=== PATIENT | male | born 1970 | race African-American/Black ===

== ENCOUNTER 2017-06-19 14:07 | Emergency (ER) | payer OTHER, SELFPAY ==
[2017-06-19 14:08] VITALS: BP 142/74; PULSE 82; RESP 16; TEMP 36.5; O2SAT 98; BMI 31.6
--- NOTE | 2017-06-19 14:31 | RAD_ITS ---
STUDY: X-RAY CHEST REASON FOR EXAM: Male, 47 years old. Cough x1 month TECHNIQUE: PA and lateral views of the chest. COMPARISON: None. FINDINGS: The lungs are clear and expanded. There is no demonstrated pleural abnormality. Normal size heart. Normal mediastinum and reina. Normal visualized pulmonary arteries. Normal visualized aortic arch and descending thoracic aorta. Normal visualized thoracic spine. Normal visualized ribs, clavicles, and shoulders. There is no demonstrated abnormality of the visualized soft tissue structures of the upper abdomen. RAD/Chest PA and Lateral IMPRESSION: Normal x-ray examination of the chest. Electronically Signed: Favian Snyder DO at 15:20 EST Tel , Service support ,
--- NOTE | 2017-06-19 15:10 | ED.DCSUM_ITS ---
- ER Visit Summary Date of Service: 06/19/17 Chief Complaint: Active cough ?1 month. History of Present Illness: The patient is a 47 M is a smoker 1 pack per day presents with a productive cough of yellow-green sputum for 1 month. He denies fever, chills night sweats. He denies rhinorrhea, postnasal drainage, earache or sore throat. He denies history of PE or DVT and has no risk factors. He denies any leg pain, swelling discoloration. Physical Examination: Vital signs remarkable blood pressure 142/74. He is PERC negative. Head is atraumatic normocephalic. Pupils are equal round reactive. Extraocular muscles are intact. TMs are pearly white with landmarks noted. Nares patent with no drainage. Posterior pharynx without erythema or exudate. Uvula is midline. There is no dysphonia or dysphasia. Trachea is midline. There is no stridor with auscultation of the neck. Heart is regular without murmur, gallop or rub. S1 and S2 are normal. Lungs are clear to auscultation with good movement of air bilaterally. There is no asymmetry, swelling, discoloration, leg vein distention, palpable cords or tenderness along the distribution of the deep venous system. Test Results: View chest x-ray was interpreted by me as negative Emergency Department Course and Treatment: Chest x-ray is obtained since patient had a productive cough for 1 month. Treatment Plan: Prescription for doxycycline Disposition: Discharged to home with appropriate home-going instructions Impression: Purulent bronchitis This note was generated with [employer] dictation software. It may contain incorrect words, spelling, and punctuation that were not noted in review of the chart prior to signing ED Disposition - Plan for ED Patient: Disposition: Home or Assisted Living Chief Complaint: Cough Instructions: ED Upper Resp Infec Abx Tx Prescriptions: Doxycycline [Vibramycin] 100 mg PO BID #14 cap Referrals: NOT,DEFINED [Primary Care Provider] - Fast,Heather, DO [NON-STAFF] - 3-5 Days if not improving
[2017-06-19 15:21] VITALS: RESP 18
[2017-06-19] MEDS: Doxycycline 100 MG CAPSULE PO (15:21)
== END 2017-06-19 15:21 | disposition home or self-care (01) ==
PROVIDERS: Emergency Provider Emergency Medicine
DX: J41.1 Mucopurulent chronic bronchitis (principal); F17.200 Nicotine dependence, unspecified, uncomplicated
CPT/HCPCS: 71046; 99283

== ENCOUNTER 2017-08-13 06:54 | Emergency (ER) | payer OTHER, SELFPAY ==
[2017-08-13 06:56] VITALS: BP 126/89; PULSE 79; RESP 16; TEMP 36.4; O2SAT 98; BMI 32.3
--- NOTE | 2017-08-13 07:06 | ED.DCSUM_ITS ---
- ER Visit Summary Date of Service: 08/13/17 Chief Complaint: Penile pain and discharge History of Present Illness: The patient is a 47 M with a 2 day history of pain in his penis, thick penile discharge, and mild burning with urination. Patient does report recent intercourse with a new partner and the condom broke. He has had gonorrhea in the past with similar type symptoms. He denies any obvious hematuria. He did had some mild left flank pain. Physical Examination: Vital signs are unremarkable. Patient sitting at bedside chair no acute distress. Head neck examination is unremarkable. Heart is regular rate and rhythm. Lung sounds are clear. Abdomen is soft and nontender to palpation. examination reveals minimal tenderness to the left testicle. There is no edema or erythema. No lesions are noted. He has no discharge. Test Results: [] Emergency Department Course and Treatment: She did give a urine sample. This will be sent for urinalysis and GC chlamydia testing. Patient be treated with Rocephin and Zithromax. Treatment Plan: [] Disposition: Discharge Impression: Penile discharge This note was generated with [employer] dictation software. It may contain incorrect words, spelling, and punctuation that were not noted in review of the chart prior to signing ED Disposition - Plan for ED Patient: Chief Complaint: Male Pain/Injury Referrals: NOT,DEFINED [NON-STAFF] -
--- NOTE | 2017-08-13 08:25 | ED.DEP ---
ED Disposition - Plan for ED Patient: Disposition: Home or Assisted Living Chief Complaint: Male Pain/Injury Instructions: ED STD Male Treated Referrals: Nuris Hi MD [COURTESY STAFF PHYSICIAN] - As Needed
[2017-08-13 08:31] LABS: Bacteria 0 SEEN /hpf (None Seen); Mucous, Urine 0 SEEN /hpf (<or=2+); Red Blood Cells-Urine 0 SEEN /hpf (0-5); White Blood Cells 0 SEEN /hpf (0-5)
[2017-08-13] MEDS: Azithromycin 250 MG Tablet 1000 MG PO (08:32)
[2017-08-13 08:38] LABS: Color, Urine Yellow (Yellow); Glucose, Dipstick Normal (Normal); Ketone-Dipstick Negative (Negative); Leukocyte Esterase-Dipstick Negative /ul (Negative); Nitrite-Dipstick Negative (Negative); Occult Blood-Urine Negative /ul (Negative); Protein-Dipstick Negative (Negative); Specific Gravity, Urine 1.015 (1.002-1.030); Urine Bilirubin Dipstick Negative (Negative); Urine Clarity Clear (Clear); Urine Urobilinogen Normal (Normal)
[2017-08-13 08:44] LABS: Squamous Epithelial Cells - UA 0-5 SEEN /hpf (0-5)
[2017-08-13] MEDS: Ceftriaxone 500 MG Vial 250 MG IM (09:00)
[2017-08-13 09:06] VITALS: BP 145/96; PULSE 60; RESP 18; O2SAT 100
[2017-08-13 09:11] VITALS: BP 128/87; PULSE 63; RESP 15; O2SAT 100
[2017-08-13 10:29] LABS: Chlamydia Trachomatis by PCR Negative (Negative); Neisserai gonorrhoeae by PCR Negative (Negative)
[2017-08-13 10:30] LABS: Probe Check PASS; Sample Adequacy Control PASS; Specimen Processing Control PASS
== END 2017-08-13 09:12 | disposition home or self-care (01) ==
PROVIDERS: Emergency Provider Emergency Medicine
DX: R36.9 Urethral discharge, unspecified (principal); N48.89 Other specified disorders of penis; Z72.0 Tobacco use
CPT/HCPCS: 81001; 87491; 87591; 96372; 99283

== ENCOUNTER 2017-08-28 14:17 | Emergency (ER) | payer OTHER, SELFPAY ==
[2017-08-28 14:21] VITALS: BP 128/77; PULSE 83; RESP 18; TEMP 36.2; O2SAT 97; BMI 30.7
--- NOTE | 2017-08-28 15:08 | ED.VISSUMM ---
- ER Visit Summary Date of Service: 08/28/17 Chief Complaint: Dysuria History of Present Illness: The patient is a 47 M continuing burning at the tip of the penis during urination. It has been going on for 2 weeks. Seen 2 weeks ago had penile discharge, treated for urethritis with Rocephin and Zithromax. History of similar with gonorrhea in the past. States discharge is improved however still has burning. No intercourse since being treated. No fevers. No abdominal pain. has been using Azo. No other complaints. Physical Examination: General: Alert and oriented ?3, no acute distress HEENT: Normocephalic, atraumatic. Moist mucosa membranes Neck: supple, nontender. Cardiovascular: Regular rate and rhythm, no murmurs Respiratory: Normal breath sounds, symmetric, no distress Abdomen: Soft, nontender, nondistended : No penile or urethral ulcerations. No discharge. No testicular tenderness. Extremities: Nontender, no edema, pulses intact ?4 Neuro: no focal neurological deficits. Test Results: UA: Positive for nitrites. Urine culture sent. GC chlamydia pending. Emergency Department Course and Treatment: Patient nontoxic. History states discharge improving with treatment. His urine GC chlamydia reviewed was negative from 2 weeks ago. Discussed with patient plans on time a day if he urinated this could be a false positive reading. However discharge improving. I discussed can resend urethral swab for testing for which he agrees. UA checked noted nitrites. He did not have intercourse since being treatment. Less likely recurrent symptoms. Discussed with patient we will treat for his UTI being symptomatic. He is given follow-up as an outpatient. Pending his GC chlamydia results for required or needed retreatment. Treatment Plan: [] Disposition: Discharge Impression: Urinary tract infection This note was generated with [employer] dictation software. It may contain incorrect words, spelling, and punctuation that were not noted in review of the chart prior to signing ED Disposition - Plan for ED Patient: Disposition: Home or Assisted Living Chief Complaint: Complaint Diagnosis: Urinary tract infection Instructions: Urinary Tract Infections in Men Prescriptions: Cephalexin [Keflex] 500 mg PO BID #20 capsule Referrals: Care Physician,No Primary [Primary Care Provider] - Sher Aranda MD [STAFF PHYSICIAN] - 5-7 Days
[2017-08-28 15:26] LABS: White Blood Cells 0 SEEN /hpf (0-5)
[2017-08-28 15:35] LABS: Color, Urine Yellow (Yellow); Glucose, Dipstick Normal (Normal); Ketone-Dipstick Negative (Negative); Leukocyte Esterase-Dipstick Negative /ul (Negative); Nitrite-Dipstick Positive (Negative); Occult Blood-Urine Negative /ul (Negative); Protein-Dipstick 15 mg/dl (Negative); Urine Bilirubin Dipstick Negative (Negative); Urine Clarity Clear (Clear); Urine Urobilinogen 1 mg/dl (Normal)
[2017-08-28 15:42] LABS: Red Blood Cells-Urine 0-5 SEEN /hpf (0-5); Squamous Epithelial Cells - UA 0-5 SEEN /hpf (0-5)
[2017-08-28 15:43] LABS: Bacteria RARE /hpf (None Seen); Mucous, Urine RARE /hpf (<or=2+)
[2017-08-28] MEDS: Cephalexin 250 MG Capsule 500 MG PO (16:00)
--- NOTE | 2017-08-28 16:03 | ED.RN ---
REVIEWED D/C INSTRUCTIONS, FOLLOW UP CARE, PRESCRIPTION, AND S/S THAT WOULD WARRANT A RETURN TO THE ED WITH PT. PT VERBALIZED AN UNDERSTANDING AND DENIES FURTHER QUESTIONS FOR THIS RN. PT SKIN WARM AND DRY, RESP EVEN AND UNLABORED, PT A&O X 3, NO DISTRESS NOTED. PT AMBULATED OUT OF ED, GAIT STEADY.
[2017-08-28 16:04] VITALS: RESP 14
== END 2017-08-28 16:04 | disposition home or self-care (01) ==
PROVIDERS: Emergency Provider Emergency Medicine
DX: N39.0 Urinary tract infection, site not specified (principal)
CPT/HCPCS: 81001; 87086; 87110; 87140; 87491; 87591; 99283

== ENCOUNTER 2017-11-15 13:40 | Emergency (ER) | payer OTHER, SELFPAY ==
[2017-11-15 13:41] VITALS: BP 139/9; PULSE 84; RESP 16; TEMP 36.2; O2SAT 97; BMI 32.3
--- NOTE | 2017-11-15 15:17 | ED.DCSUM_ITS ---
- ER Visit Summary Date of Service: 11/15/17 Chief Complaint: Penile pain History of Present Illness: The patient is a 47 M who states he has pain at the tip of his penis. He has had this for 3 days. He describes as burning. Denies any discharge. No fevers. He states it does not get worse when he urinates. He was seen before and treated and it got better. It looks like it was seen earlier this year and was given Rocephin and azithromycin but did not get better with this so he came back for more oral antibiotics got better. His GC and chlamydia tests were negative at that time. He states he has been sexually active with a single partner that he has had since that last visit. Physical Examination: Vitals are reviewed. Genitourinary exam reveals a normal penis. No tenderness. No discharge. Testicles are nontender. The rest of exam is unremarkable Test Results: UA reveals trace leukocytes of 0-5 white blood cells. GC and Chlamydia are pending Emergency Department Course and Treatment: [] Treatment Plan: Patient will be treated with doxycycline at home. He will follow up with his PCP Disposition: Discharge Impression: UTI This note was generated with [employer] dictation software. It may contain incorrect words, spelling, and punctuation that were not noted in review of the chart prior to signing ED Disposition - Plan for ED Patient: Chief Complaint: Male Pain/Injury Referrals: Care Physician,No Primary [Primary Care Provider] -
[2017-11-15 15:50] LABS: Bacteria 0 SEEN /hpf (None Seen); Mucous, Urine 0 SEEN /hpf (<or=2+); Red Blood Cells-Urine 0 SEEN /hpf (0-5)
[2017-11-15 16:04] LABS: Color, Urine Yellow (Yellow); Glucose, Dipstick Normal (Normal); Ketone-Dipstick Negative (Negative); Leukocyte Esterase-Dipstick 25 /ul (Negative); Nitrite-Dipstick Negative (Negative); Occult Blood-Urine Negative /ul (Negative); Protein-Dipstick 15 mg/dl (Negative); Urine Bilirubin Dipstick Negative (Negative); Urine Clarity Sl. Cloudy (Clear); Urine Urobilinogen Normal (Normal)
[2017-11-15 16:18] LABS: Squamous Epithelial Cells - UA 0-5 SEEN /hpf (0-5); White Blood Cells 0-5 SEEN /hpf (0-5)
--- NOTE | 2017-11-15 16:25 | ED.DEP ---
ED Disposition - Plan for ED Patient: Disposition: Home or Assisted Living Chief Complaint: Male Pain/Injury Instructions: ED UTI Cystitis Male Prescriptions: Doxycycline Monohydrate 100 mg PO BID #14 cap Referrals: Care Physician,No Primary [Primary Care Provider] -
[2017-11-15 16:33] VITALS: BP 124/66; PULSE 81; RESP 15; O2SAT 98
[2017-11-15 17:25] LABS: Chlamydia Trachomatis by PCR Negative (Negative); Neisserai gonorrhoeae by PCR Negative (Negative); Probe Check PASS; Sample Adequacy Control PASS; Specimen Processing Control PASS
== END 2017-11-15 16:34 | disposition home or self-care (01) ==
PROVIDERS: Emergency Provider Emergency Medicine
DX: N39.0 Urinary tract infection, site not specified (principal); Z72.0 Tobacco use
CPT/HCPCS: 81001; 87491; 87591; 99282

== ENCOUNTER 2017-12-10 14:28 | Emergency (ER) | payer OTHER, SELFPAY ==
[2017-12-10 14:31] VITALS: BP 135/82; PULSE 85; RESP 18; TEMP 36.6; O2SAT 98; BMI 33.7
[2017-12-10 14:48] VITALS: BP 125/80; PULSE 80; RESP 14; O2SAT 99
--- NOTE | 2017-12-10 15:12 | ED.VISSUMM ---
- ER Visit Summary Date of Service: 12/10/17 Chief Complaint: Penile pain History of Present Illness: The patient is a 47 M who was seen in August with the same complaint as well as the beginning of this month. At the beginning of this month he was treated with doxycycline. He states that while being treated he was having sex. Denies any fevers. He states that yesterday he had urination at the end he had a thick clear discharge. Today he took a [id number] Azo. Physical Examination: Afebrile vital signs stable Gen: Well-nourished well-developed Head: Normocephalic atraumatic Eyes: Perrl EOMI ENT: TMs clear no rhinorrhea moist mucous membranes Neck: Supple no lymphadenopathy no JVD nontender CVS: Regular rate rhythm no murmurs normal S1-S2 Respiratory: No distress clear to auscultation bilaterally chest nontender Abdomen: Soft nontender nondistended normal bowel sounds no masses : Circumcised male. There is no obvious drainage on the underwear or of the meatus. No lesions are seen. Back: Nontender Extremity: Nontender no edema Skin: Normal color no rash Neuro: alert orientated ?3 CN II-XII intact normal strength sensation reflexes gait cerebellar Psych: Normal affect normal mood Test Results: Urinalysis is nitrate and leukocyte esterase positive. 0-5 white cells 0-5 red cells 0 epithelial cells. Gonorrhea chlamydia was sent again. Emergency Department Course and Treatment: Patient just had a negative gonorrhea and chlamydia test. He was just on doxycycline. Does not improve his symptoms. I have asked him to refrain from any sexual activity. I have asked him to take Flagyl thinking perhaps there could be a trichomonas infection. I have asked him to follow-up with urology. Impression: 1. Urethritis This note was generated with [employer] dictation software. It may contain incorrect words, spelling, and punctuation that were not noted in review of the chart prior to signing ED Disposition - Plan for ED Patient: Disposition: Home or Assisted Living Chief Complaint: Male Pain/Injury Instructions: Urethritis in Men Prescriptions: Metronidazole [Flagyl] 500 mg PO BID #14 tab Referrals: Melchor Cuellar MD [STAFF PHYSICIAN] - (call to arrange follow up)
[2017-12-10 15:35] LABS: Bacteria 0 SEEN /hpf (None Seen); Mucous, Urine 0 SEEN /hpf (<or=2+); Squamous Epithelial Cells - UA 0 SEEN /hpf (0-5)
[2017-12-10 15:38] LABS: Color, Urine Yellow (Yellow); Glucose, Dipstick Normal (Normal); Ketone-Dipstick 5 mg/dl (Negative); Leukocyte Esterase-Dipstick 25 /ul (Negative); Nitrite-Dipstick Positive (Negative); Occult Blood-Urine Negative /ul (Negative); Protein-Dipstick 15 mg/dl (Negative); Specific Gravity, Urine 1.025 (1.002-1.030); Urine Clarity Clear (Clear); Urine Urobilinogen 1 mg/dl (Normal)
[2017-12-10 15:46] LABS: Urine Bilirubin Dipstick 1 mg/dL (Negative)
[2017-12-10 15:55] LABS: Red Blood Cells-Urine 0-5 SEEN /hpf (0-5); White Blood Cells 0-5 SEEN /hpf (0-5)
[2017-12-10 16:32] VITALS: BP 131/70; PULSE 80; RESP 14; O2SAT 99
[2017-12-10 17:24] LABS: Chlamydia Trachomatis by PCR Negative (Negative); Neisserai gonorrhoeae by PCR Negative (Negative); Probe Check PASS; Sample Adequacy Control PASS; Specimen Processing Control PASS
== END 2017-12-10 16:33 | disposition home or self-care (01) ==
PROVIDERS: Emergency Provider Emergency Medicine
DX: N34.2 Other urethritis (principal); Z72.0 Tobacco use
CPT/HCPCS: 81001; 87086; 87088; 87491; 87591; 99282

== ENCOUNTER 2018-07-06 14:22 | Emergency (ER) | payer OTHER, SELFPAY ==
[2018-07-06 14:22] VITALS: BMI 31.6
[2018-07-06 14:23] VITALS: BP 154/88; PULSE 100; RESP 16; TEMP 36.1; O2SAT 98; BMI 33.1
--- NOTE | 2018-07-06 15:00 | ED.DCSUM_ITS ---
- ER Visit Summary Date of Service: 07/06/18 Chief Complaint: Penile pain History of Present Illness: The patient is a 48 M past medical or surgical history. Patient states is been sexually active with the same woman for the last several weeks to months. He is recently developed discomfort at his distal urethral meatus. He denies dysuria. He denies any penile discharge or bleeding. Denies any trauma. Denies any urinary frequency, urgency or cloudy urine. No difficulty urinating. States it feels similar to another time when he had an STD. Physical Examination: Well-appearing male. Vital signs are stable. Afebrile. HEENT exam unremarkable. Lungs clear to auscultation bilaterally. Heart regular rate and rhythm no murmur. Abdomen soft nontender. Normal bowel sounds no peritoneal signs. Sternal exam unremarkable. Penile shaft nontender. No signs of trauma. No penile discharge or bleeding. The distal urethral meatus is unremarkable. Scrotum and testicles are nontender. Nonswollen. No redness. No masses. No obvious inguinal hernias. Extremities are unremarkable. Neurologically is awake and alert. Test Results: None Emergency Department Course and Treatment: Patient is describing symptoms consistent with a possible urethritis. He will be treated with Rocephin and Zithromax and discharged. Instructed not to have any sexual intercourse for at least a week. Treatment Plan: Follow-up with not improving. Disposition: Discharge Impression: Acute urethritis This note was generated with [employer] dictation software. It may contain incorrect words, spelling, and punctuation that were not noted in review of the chart prior to signing ED Disposition - Plan for ED Patient: Referrals: Care Physician,No Primary [Primary Care Provider] -
--- NOTE | 2018-07-06 15:01 | ED.DEP ---
ED Disposition - Plan for ED Patient: Disposition: Home or Assisted Living Instructions: ED Urethritis Infec Vs Inflam Male Referrals: Sher Aranda MD [STAFF PHYSICIAN] - As Needed Additional Instructions: Follow-up if not improving. No sexual intercourse for at least a week. Always use condoms.
[2018-07-06] MEDS: Azithromycin 250 MG Tablet 1000 MG PO (15:06)
[2018-07-06] MEDS: Ceftriaxone 500 MG Vial 250 MG IM (15:48)
[2018-07-06 15:59] VITALS: PULSE 98; RESP 17; O2SAT 98
== END 2018-07-06 15:58 | disposition home or self-care (01) ==
PROVIDERS: Emergency Provider Emergency Medicine
DX: N34.2 Other urethritis (principal); Z72.0 Tobacco use
CPT/HCPCS: 96372; 99283

== ENCOUNTER 2018-07-28 15:19 | Emergency (ER) | payer OTHER, SELFPAY ==
[2018-07-28 15:19] VITALS: BP 138/83; PULSE 93; RESP 16; TEMP 36.8; O2SAT 98; BMI 33.0
--- NOTE | 2018-07-28 15:39 | ED.VISSUMM ---
- ER Visit Summary Date of Service: 07/28/18 Chief Complaint: Patient presents with penile pain for the past 2-1/2 weeks. He was seen in the emergency department and treated for GC and chlamydia. He continues to have pain in his penis. He has no dysuria, he has no pain with intercourse, he has no pain with bowel movement. He has no fever or chills he has no testicular pain. Most of his pain is on the left side of his penis. Denies any rash, joint pains fevers or chills. Physical Examination: He has a soft nontender abdomen he has no CVA tenderness examination reveals no inguinal hernia normal testicular exam normal bilateral cremasteric reflex. Normal lie of the testicles with no pain anterior or posterior testicle region. He has tenderness over the left side of the penis, there is no rash or vesicles. No erythema. Normal external examination. Emergency Department Course and Treatment: Patient has no history of any lesions, he has penile pain. He has no symptoms of systemic disease. He was treated for GC and chlamydia, he has no dysuria, this is unlikely to be infectious, I am unsure about the etiology of his pain I will put him on anti-inflammatories and refer him to urology. Disposition: Discharge stable condition Impression: Penile pain This note was generated with [employer] dictation software. It may contain incorrect words, spelling, and punctuation that were not noted in review of the chart prior to signing ED Disposition - Plan for ED Patient: Disposition: Home or Assisted Living Prescriptions: Naproxen [Naprosyn] 500 mg PO BID PRN #20 tab Referrals: Melchor Cuellar MD [STAFF PHYSICIAN] - 3-5 Days Additional Instructions: If you have fever chills abdominal pain joint pain or you feel worse you need to return if you see a rash and need to return. Otherwise follow-up with urology
--- NOTE | 2018-07-28 15:43 | ED.DCSUM_ITS ---
- ER Visit Summary Date of Service: 07/28/18 Chief Complaint: Patient presents with penile pain for the past 2-1/2 weeks. He was seen in the emergency department and treated for GC and chlamydia. He continues to have pain in his penis. He has no dysuria, he has no pain with intercourse, he has no pain with bowel movement. He has no fever or chills he has no testicular pain. Most of his pain is on the left side of his penis. Denies any rash, joint pains fevers or chills. Physical Examination: He has a soft nontender abdomen he has no CVA tenderness examination reveals no inguinal hernia normal testicular exam normal bilateral cremasteric reflex. Normal lie of the testicles with no pain anterior or posterior testicle region. He has tenderness over the left side of the penis, there is no rash or vesicles. No erythema. Normal external examination. Emergency Department Course and Treatment: Patient has no history of any lesions, he has penile pain. He has no symptoms of systemic disease. He was treated for GC and chlamydia, he has no dysuria, this is unlikely to be infectious, I am unsure about the etiology of his pain I will put him on anti- inflammatories and refer him to urology. Disposition: Discharge stable condition Impression: Penile pain This note was generated with [employer] dictation software. It may contain incorrect words, spelling, and punctuation that were not noted in review of the chart prior to signing ED Disposition - Plan for ED Patient: Disposition: Home or Assisted Living Prescriptions: Naproxen [Naprosyn] 500 mg PO BID PRN #20 tab Referrals: Melchor Cuellar MD [STAFF PHYSICIAN] - 3-5 Days Additional Instructions: If you have fever chills abdominal pain joint pain or you feel worse you need to return if you see a rash and need to return. Otherwise follow-up with urology
[2018-07-28 15:58] VITALS: RESP 18
== END 2018-07-28 15:59 | disposition home or self-care (01) ==
LOC: ED 15:50
PROVIDERS: Emergency Provider Emergency Medicine
DX: N48.89 Other specified disorders of penis (principal)
CPT/HCPCS: 99282